=== PATIENT | female | born 1955 | race Caucasian/White ===

== ENCOUNTER 2017-06-18 17:12 | Observation (INO) | payer OTHER ==
[~2017-06-18] VITALS: Ht 172.7 cm; Wt 91.2 kg
[2017-06-18] MEDS ORDERED: ASPIRIN 81 MG CHEW PO STA (17:36)
--- NOTE | 2017-06-18 17:46 | EMERGENCY ROOM VISIT NOTE ---
ED Visit Note First contact with patient: 17:20 CHIEF COMPLAINT: Chest pain HISTORY OF PRESENTING ILLNESS: This is a 62-year-old female who presents to the emergency department with complaint of chest pain that started yesterday. She states that chest pain is in the left side of her chest, started yesterday afternoon, this morning she woke up with pain radiating down her left arm, she states the pain has been constant, the chest pain as a sharp/stabbing pain, and the arm pain is an aching, currently rates as 3/10. She has also felt clammy, although she attributes this to hot flashes. She denies any associated shortness of breath, dizziness, nausea or vomiting. She has not tried any medications for her symptoms. She is not a smoker, she denies a history of hypertension or diabetes, she has no history of coronary artery disease. She does have significant family history with both her mother and her father experiencing MIs, and has a sister who has had a stroke. She denies any headache, vision changes, neck pain, abdominal pain, back pain, diarrhea, bloody or black stools, urinary symptoms, or rash. REVIEW OF SYSTEMS: A complete 10 point review of systems was reviewed with the patient with pertinent positives and negatives as per history of present illness. All else were negative. PAST MEDICAL HISTORY: Hyperlipidemia, anxiety SOCIAL HISTORY: Lives at home with her . Denies tobacco, alcohol, recreational drug use. ALLERGIES: [place] PHYSICAL EXAM: CONSTITUTIONAL: Pleasant and cooperative. No acute distress. Well-hydrated, well appearing and well nourished. HEENT: Normocephalic, atraumatic. Pupils equal, round and reactive to light, EOMI. TMs normal. Pharynx normal. Moist mucous membranes. NECK: Supple, full active range of motion without discomfort. No cervical adenopathy. RESPIRATORY: Clear to auscultation bilaterally with no wheezing, crackles, rhonchi or stridor. Equal expansion bilaterally. CARDIOVASCULAR: Regular rate and rhythm with no murmurs, rubs or gallops. Normal peripheral perfusion with 2+ radial and DP pulses equal bilaterally. No edema. GASTROINTESTINAL: Soft, nontender, nondistended. No palpable masses or HSM. Bowel sounds present in all quadrants. MUSCULOSKELETAL: Full range of motion of all joints without discomfort. No calf swelling or tenderness to palpation. INTEGUMENTARY: No rash or other significant dermatologic conditions noted. NEUROLOGIC: Alert and oriented X 4 with normal affect. Cranial nerves II-XII grossly intact, no facial droop, no pronator drift. No focal neurologic deficits noted. 5/5 strength in all 4 extremities, sensation intact to light touch all 4 extremities. [id number] testing normal. Speech normal. Normal gait observed. ED COURSE AND MEDICAL DECISION MAKING: CC: Patient presenting with complaint of chest pain DIFFERENTIAL DIAGNOSIS: Includes, but not limited to acute coronary syndrome, pulmonary embolism, aortic dissection, pneumothorax, pericarditis, myocarditis, anxiety, musculoskeletal pain, GERD, costochondritis, pneumonia, among others. INTERPRETATION OF LABS: No leukocytosis, no anemia, no significant electrolyte abnormalities, normal renal function, normal liver enzymes and lipase. Troponin negative. Coagulation factors within normal limits. IMAGING: CHEST 2 VIEWS ROUTINE CLINICAL HISTORY: Atypical chest pain COMPARISON STUDY: No previous studies for comparison. FINDINGS: The heart is at the upper limits of normal in size. There is no failure. There is no focal pulmonary consolidation. There are no pleural effusions. IMPRESSION: No active disease in the chest. EKG: Shows normal sinus rhythm with a rate of 72 bpm, nonspecific ST and T-wave abnormality in the inferior and anterior leads by my interpretation. No previous EKG available for comparison. MEDICATION RECONCILIATION: I attest that I have personally reviewed the patient 's current medication list. INITIAL VITAL SIGNS REVIEW: I reviewed the patient's initial vital signs and interpret them as follows: T: Afebrile; BP: Hypertensive; HR: Within normal limits; RR: Within normal limits; Pulse Ox: Within normal limits on room air. Blood pressure screening: The patient was found to have an elevated blood pressure and was referred to the inpatient hospitalist team for further management. SUMMARY: Patient was evaluated at bedside, history and physical exam performed. Patient is alert and oriented, in no acute distress, resting calmly in stretcher. Patient does not have any reproducibility of her chest or arm pain. Patient is noted to be hypertensive, vitals are otherwise unremarkable. Patient neurologic exam is normal with no focal deficits. Patient does have a slight droop to the left side of her mouth which she and her state is normal and does not have any facial muscle weakness with smiling or raising of the eyebrows. EKG reviewed at bedside, normal sinus rhythm with some nonspecific ST and T- wave abnormalities in the inferior and anterior leads. Orders were placed at bedside for labs, aspirin, chest x-ray to evaluate for cardiopulmonary disease. Patient discussed with Dr. Xiong, who agrees with my assessment and plan. Labs and imaging reviewed as above, unremarkable, troponin negative. Patient was discussed with the hospitalist, who agrees to evaluate for admission. Patient reassessed multiple times throughout ED stay, she remains well-appearing , reports her chest pain has improved somewhat. Patient was updated on all results and plan for admission, she verbalized understanding and was in agreement with this plan. Patient was in stable condition at time of admission. Current/Historical Medications Scheduled Atorvastatin (Lipitor), 40 MG PO QPM Calcium Carbonate-Vitamin D W/ (Caltrate 600 Plus), 1 TAB PO DAILY Fluticasone Propionate (Nasal) (Flonase Allergy Relief), 2 SPRAYS JULISSA DAILY Venlafaxine Hcl (Venlafaxine Extended Rel), 75 MG PO DAILY Scheduled PRN Lorazepam (Ativan), 0.5 MG PO BID PRN for Anxiety Meloxicam (Mobic), 7.5 MG PO DAILY PRN for Pain Omeprazole (Prilosec), 40 MG PO DAILY PRN for acid reflux [Proair 108], 2 PUFF INH Q4 PRN for SOB/Wheezing Allergies Coded Allergies: Cefotaxime (Verified Allergy, Mild, 0, 06/18/17) pruritus Vital Signs Date Time Temp Pulse Resp B/P (MAP) Pulse Ox O2 Delivery O2 Flow Rate FiO2 06/18/17 22:03 157/93 06/18/17 21:42 80 16 96 06/18/17 21:31 158/89 06/18/17 21:12 78 14 96 06/18/17 21:01 160/92 06/18/17 20:42 84 16 06/18/17 20:31 171/101 06/18/17 20:27 71 16 135/87 96 Room Air 06/18/17 20:12 72 16 96 06/18/17 20:01 139/88 06/18/17 19:42 74 15 06/18/17 19:32 73 06/18/17 19:31 126/94 06/18/17 18:40 97 Room Air 06/18/17 18:40 69 16 145/89 96 Room Air 06/18/17 17:40 96 Room Air 06/18/17 17:40 96 Room Air 06/18/17 17:14 36.9 82 16 161/96 96 Room Air Laboratory Results 06/18/17 17:48 Red Blood Count 4.31, Mean Corpuscular Volume 86.1, Mean Corpuscular Hemoglobin 29.7, Mean Corpuscular Hemoglobin Concent 34.5, Mean Platelet Volume 10.0, Neutrophils (%) (Auto) 49.9, Lymphocytes (%) (Auto) 39.6, Monocytes (%) (Auto) 8.4, Eosinophils (%) (Auto) 1.7, Basophils (%) (Auto) 0.3, Neutrophils # (Auto) 3.56, Lymphocytes # (Auto) 2.83, Monocytes # (Auto) 0.60, Eosinophils # (Auto) 0.12, Basophils # (Auto) 0.02 06/18/17 17:48 Test 06/18/17 17:48 06/18/17 21:27 White Blood Count 7.14 K/uL (4.8-10.8) Red Blood Count 4.31 M/uL (4.2-5.4) Hemoglobin 12.8 g/dL (12.0-16.0) Hematocrit 37.1 % (37-47) Mean Corpuscular Volume 86.1 fL (80-100) Mean Corpuscular Hemoglobin 29.7 pg (25-34) Mean Corpuscular Hemoglobin Concent 34.5 g/dl (32-36) Platelet Count 214 K/uL (130-400) Mean Platelet Volume 10.0 fL (7.4-10.4) Neutrophils (%) (Auto) 49.9 % Lymphocytes (%) (Auto) 39.6 % Monocytes (%) (Auto) 8.4 % Eosinophils (%) (Auto) 1.7 % Basophils (%) (Auto) 0.3 % Neutrophils # (Auto) 3.56 K/uL (1.4-6.5) Lymphocytes # (Auto) 2.83 K/uL (1.2-3.4) Monocytes # (Auto) 0.60 K/uL (0.11-0.59) Eosinophils # (Auto) 0.12 K/uL (0-0.5) Basophils # (Auto) 0.02 K/uL (0-0.2) RDW Standard Deviation 42.3 fL (36.4-46.3) RDW Coefficient of Variation 13.3 % (11.5-14.5) Immature Granulocyte % (Auto) 0.1 % Immature Granulocyte # (Auto) 0.01 K/uL (0.00-0.02) Prothrombin Time 9.9 SECONDS (9.0-12.0) Prothromb Time International Ratio 0.9 (0.9-1.1) Activated Partial Thromboplast Time 24.3 SECONDS (21.0-31.0) Partial Thromboplastin Ratio 0.9 Anion Gap 8.0 mmol/L (3-11) Est Creatinine Clear Calc Drug Dose 83.7 ml/min Estimated GFR () 91.7 Estimated GFR (Non- 79.1 BUN/Creatinine Ratio 21.1 (10-20) Calcium Level 8.5 mg/dl (8.5-10.1) Magnesium Level 2.2 mg/dl (1.8-2.4) Total Bilirubin 0.4 mg/dl (0.2-1) Direct Bilirubin < 0.1 mg/dl (0-0.2) Aspartate Amino Transf (AST/SGOT) 11 U/L (15-37) Alanine Aminotransferase (ALT/SGPT) 24 U/L (12-78) Alkaline Phosphatase 73 U/L (45-117) Pro-B-Type Natriuretic Peptide 28 pg/ml (0-900) Total Protein 7.4 gm/dl (6.4-8.2) Albumin 3.9 gm/dl (3.4-5.0) Lipase 378 U/L (73-393) Troponin I < 0.015 ng/ml (0-0.045) Medications Administered Medications (Trade) Dose Ordered Sig/Tal Route Start Time Stop Time Status Last Admin Dose Admin Aspirin (Aspirin Chew) 324 mg NOW STAT PO 06/18/17 17:36 06/18/17 17:39 DC 06/18/17 17:55 324 MG Departure Information Impression Primary Impression: Chest pain Dispostion Admitted as an inpatient Condition FAIR Referrals No Doctor, Assigned (PCP) Patient Instructions My [facility] Problem Qualifiers Primary Impression: Chest pain Chest pain type: unspecified Qualified Codes: R07.9 - Chest pain, unspecified
[2017-06-18 18:04] LABS: BASO % 0.3 %; BASO ABS # 0.02 K/uL (0-0.2); EOS % 1.7 %; EOS ABS # 0.12 K/uL (0-0.5); HEMATOCRIT 37.1 % (37-47); HEMOGLOBIN 12.8 g/dL (12.0-16.0); IG# 0.01 K/uL (0.00-0.02); LYMPH % 39.6 %; LYMPH ABS # 2.83 K/uL (1.2-3.4); MEAN CELL VOLUME 86.1 fL (80-100); MEAN CORPUSCULAR HEMOGLOBIN 29.7 pg (25-34); MEAN CORPUSCULAR HGB CONC 34.5 g/dl (32-36); MONO % 8.4 %; NEUT % 49.9 %; NEUT ABS # 3.56 K/uL (1.4-6.5); PLATELET COUNT 214 K/uL (130-400); RED CELL DISTRIBUTION WIDTH CV 13.3 % (11.5-14.5); RED CELL DISTRIBUTION WIDTH SD 42.3 fL (36.4-46.3); WHITE BLOOD COUNT 7.14 K/uL (4.8-10.8)
[2017-06-18 18:13] LABS: INR 0.9 (0.9-1.1); PTT PATIENT 24.3 SECONDS (21.0-31.0)
--- NOTE | 2017-06-18 18:24 | DIAGNOSTIC IMAGING REPORT ---
CHEST 2 VIEWS ROUTINE CLINICAL HISTORY: Atypical chest pain COMPARISON STUDY: No previous studies for comparison. FINDINGS: The heart is at the upper limits of normal in size. There is no failure. There is no focal pulmonary consolidation. There are no pleural effusions.[ IMPRESSION: No active disease in the chest. Electronically signed by: Jasper Corona M.D. 06/18/2017 6:23 PM Dictated Date/Time: 06/18/2017 6:23 PM
[2017-06-18 18:25] LABS: ALBUMIN 3.9 gm/dl (3.4-5.0); ALT/SGPT 24 U/L (12-78); AST/SGOT 11 U/L (15-37); BLOOD UREA NITROGEN 17 mg/dl (7-18); CALCIUM 8.5 mg/dl (8.5-10.1); CARBON DIOXIDE 25 mmol/L (21-32); CREATININE 0.79 mg/dl (0.60-1.20); GLUCOSE 80 mg/dl (70-99); LIPASE 378 U/L (73-393); POTASSIUM 3.9 mmol/L (3.5-5.1); SODIUM 139 mmol/L (136-145)
[2017-06-18 18:33] LABS: ALKALINE PHOSPHATASE 73 U/L (45-117); TOTAL PROTEIN 7.4 gm/dl (6.4-8.2)
[2017-06-18] MEDS ORDERED: MELO7.5T5 PO (19:43)
[2017-06-18] MEDS ORDERED: OMEP40CA41 PO (19:43)
[2017-06-18] MEDS ORDERED: CALCTAB7 PO (19:43)
[2017-06-18] MEDS ORDERED: FLUT0.15 NAE (19:43)
[2017-06-18] MEDS ORDERED: LORA-741 PO (19:43)
[2017-06-18] MEDS ORDERED: ATOR-24 PO (19:43)
[2017-06-18] MEDS ORDERED: PROAIR 108 INH (19:43)
[2017-06-18] MEDS ORDERED: VENL75CA73 PO (19:43)
[2017-06-18] MEDS ORDERED: IV FLUIDS COMPLETED PRN (21:00)
[2017-06-18] MEDS ORDERED: ATORVASTATIN 40 MG TAB PO SCH (21:00)
[2017-06-18] MEDS ORDERED: MoRPHine SULFATE 4 MG/ML 1 ML CARP\\VIAL IV PRN (21:00)
[2017-06-18] MEDS ORDERED: NITROGLYCERIN 0.4 MG SL PER TAB CHARGE SL PRN (21:00)
[2017-06-18] MEDS ORDERED: LORAZEPAM 0.5 MG TAB PO PRN (21:00)
[2017-06-18] MEDS ORDERED: LORAZEPAM 2 MG/ML 1 ML VIAL IV PRN (21:00)
[2017-06-18] MEDS ORDERED: ACETAMINOPHEN 325 MG TAB PO PRN (21:00)
[2017-06-18] MEDS ORDERED: PROCHLORPERAZINE INJ 5 MG in SYRINGE 4 ML IV PRN (21:00)
[2017-06-18] MEDS ORDERED: TRAMADOL HCL 50 MG TAB PO PRN (21:00)
[2017-06-18] MEDS ORDERED: PANTOprazole SOD 40 MG TAB PO PRN (21:00)
[2017-06-18] MEDS ORDERED: LORAZEPAM INJ 0.5 MG in SYRINGE 0.75 ML IV PRN (21:30)
[2017-06-18 23:17] VITALS: BP 157/93; PULSE 67; TEMP 36.8; O2SAT 96; Ht 172.7 cm; Wt 91.2 kg
[2017-06-18] MEDS ORDERED: NSS + 20MEQ KCL 1000ML 1,000 ML IV SCH (23:30)
[2017-06-19 04:00] VITALS: BP 138/80; PULSE 66; TEMP 36.7; O2SAT 97
[2017-06-19 04:01] LABS: BASO % 0.3 %; BASO ABS # 0.02 K/uL (0-0.2); EOS ABS # 0.13 K/uL (0-0.5); HEMATOCRIT 36.5 % (37-47); HEMOGLOBIN 12.6 g/dL (12.0-16.0); LYMPH % 45.3 %; LYMPH ABS # 2.94 K/uL (1.2-3.4); MEAN CELL VOLUME 85.9 fL (80-100); MEAN CORPUSCULAR HEMOGLOBIN 29.6 pg (25-34); MEAN CORPUSCULAR HGB CONC 34.5 g/dl (32-36); MEAN PLATELET VOLUME 9.9 fL (7.4-10.4); MONO ABS # 0.65 K/uL (0.11-0.59); NEUT % 42.4 %; NEUT ABS # 2.75 K/uL (1.4-6.5); PLATELET COUNT 202 K/uL (130-400); RED CELL DISTRIBUTION WIDTH CV 13.3 % (11.5-14.5); RED CELL DISTRIBUTION WIDTH SD 41.7 fL (36.4-46.3); WHITE BLOOD COUNT 6.49 K/uL (4.8-10.8)
[2017-06-19 04:11] LABS: PTT PATIENT 23.6 SECONDS (21.0-31.0)
--- NOTE | 2017-06-19 05:51 | HISTORY & PHYSICAL EXAMINATION ---
DATE OF ADMISSION: 06/18/2017 PATIENT'S PRIMARY CARE DOCTOR: Dr. Alvarado CHIEF COMPLAINT: Chest pain. HISTORY OF PRESENT ILLNESS: History obtained from the patient and records. Medical history significant for hyperlipidemia, anxiety/depression. Today, the patient had chest pain on the left side going down her left arm, more constant. No shortness of breath, no unusual exertion. Currently, comfortable in the Emergency Room. MEDICAL HISTORY: As above. SURGERIES: She has had a tendon muscle repair, bilateral tubal ligation, section. HOME MEDICATIONS: Include Meloxicam, atorvastatin, Effexor, lorazepam, calcium carbonate, and fluticasone. ALLERGIES: CEFOTAXIME. FAMILY HISTORY: There is a family history of heart disease, diabetes. PERSONAL AND SOCIAL HISTORY: Nonsmoker, no chronic intake of alcoholic beverages. She works as a service station attendant. REVIEW OF SYSTEMS: As per HPI, all 10 systems reviewed, all other ROS negative. PHYSICAL EXAMINATION: VITAL SIGNS: Blood pressure was noted to be 157/93, pulse rate 67, respiratory rate 14, temperature 36.8, sats 96% on room air. GENERAL: Noted to be anxious, obese, no respiratory distress. Looks younger for stated age. SKIN: Normal color, warm. HEENT: [place] palpebral conjunctivae. No ptosis. Dry mucosa. NECK: Short, supple. CHEST: Decreased breath sounds. No tenderness. HEART: RRR, no murmur. ABDOMEN: Soft, nontender. EXTREMITIES: No edema, no tenderness. No gross deformities. NEUROLOGIC: Coherent, No gross focality. LABORATORY DATA: Hemoglobin was noted to be 12.8, WBC 8 platelets 214. Sodium 136, potassium 3.9, chloride 106, CO2 of 25, BUN 17, creatinine 0.79, glucose was noted to be 80. Lipid profile in February 2017 - cholesterol 286, triglyceride 175, HDL 66, LDL 185. IMAGING DATA: Chest x-ray showed no active disease. EKG as per my interpretation - 70, normal sinus rhythm, some T-wave flattening in the inferior and septal leads. ASSESSMENT: 1. Chest pain Possibly from anxiety rule out acute coronary syndrome. 2. Hyperlipidemia as per records. 3. Situational hypertension. 4. Mood disorder stable on meds PLAN: Observation PCU ASA for now for CAD prevention until ACS ruled out. Follow cardiac markers. Exercise stress echo if AM troponin negative. Anxiolytic when necessary DVT prophylaxis. Lovenox subQ. Full code. MTDD
[2017-06-19] MEDS ORDERED: ENOXAPARIN 40 MG/0.4 ML SYR SC SCH (06:00)
[2017-06-19 08:00] VITALS: BP 145/88; PULSE 63; TEMP 36.9; O2SAT 95; O2SAT 97
[2017-06-19] MEDS ORDERED: FLUTICASONE PROPIONATE NA SPR 16 GM BTL NAE SCH (09:00)
[2017-06-19] MEDS ORDERED: ASPIRIN 81 MG ECTAB PO SCH (09:00)
[2017-06-19] MEDS ORDERED: VENLAFAXINE HCL XR 75 MG CAPXR PO SCH (09:00)
[2017-06-19 12:00] VITALS: O2SAT 97
--- NOTE | 2017-06-19 13:13 | EXERCISE STRESS ECHO ---
*NOTICE TO RECEIVING LIBERTARIAN AGENCY This information is strictly Confidential and protected under [place] law. [place] law prohibits you from making any further disclosure of this information unless further disclosure is expressly permitted by the written consent of the person to whom it pertains or is authorized by law. A general authorization for the release of medical or other information is not sufficient for this purpose. Hospital accepts no responsibility if the information is made available to any other person, INCLUDING THE PATIENT. Interpretation Summary * Name: SHARATH ROBLEDO Study Date: 06/19/2017 07:59 AM BP: 118/79 mmHg * Patient Location: C.EDINP\S\EDINP 1\S\3 HR: 63 * : 1955 (M/d/yyyy) Gender: Female Height: 68 in * Age: 62 yrs Ethnicity: [place] Weight: 201 lb * Ordering Physician: Al Nguyen * Referring Physician: Self, Referred * Performed By: Patti Harrison RCS * * Reason For Study: CHEST PAIN * BSA: 2.0 m2 * -- Conclusions -- * Nonischemic exercise stress echocardiogram. * No arrhythmias. * Normal HR and BP response to exercise. * Average exercise tolerance. * At rest, normal LV chamber size with mild concentric LVH. * Normal LV systolic function, EF 55-60%. * No segmental left ventricular wall motion abnormalities are noted. * Grade I diastolic dysfunction. * Aortic valve sclerosis mild, without significant aortic valvular stenosis. Procedure Details * ECHOEX, CPT #[id number] * ECHO COLOR FLOW, CPT #[id number] * ECHO DOPPLER, CPT #[id number] Left Ventricle * The left ventricle is normal in size. * There is mild concentric left ventricular hypertrophy. * Left ventricular systolic function is normal. * No segmental left ventricular wall motion abnormalities are noted. * Ejection Fraction = 55-60%. * Resting wall motion: Normal. Stress wall motion: Appropriate increase in Left ventricular systolic function and decrease in cavity size. No stress induced segmental wall motion abnormalities. Right Ventricle * The right ventricular cavity size is normal (basal dimension <4.2 cm in right ventricular apical 4-chamber view). * The right ventricular systolic function is normal as assessed by tricuspid annular plane systolic excursion (TAPSE) (normal >1.5 cm). Atria * The left atrial size is normal. * Right atrial size is normal. * No ASD detected; PFO is not assessed. Mitral Valve * The mitral valve is normal in structure and function. Tricuspid Valve * The tricuspid valve is normal in structure and function. Aortic Valve * The aortic valve is trileaflet. * Aortic valve sclerosis mild, without significant aortic valvular stenosis. * There is no significant aortic regurgitation. Pulmonic Valve * The pulmonary valve is not well seen, but the Doppler examination is normal without significant regurgitation or stenosis. Great Vessels * The aortic root is normal size. Pericardium * There is no pericardial effusion. Stress Parameters * Normal baseline electrocardiogram. * Stress ECG: No ST changes. No arrhythmias. * No arrhythmia were noted with stress. * The stress portion of this study was personally supervised by the undersigned interpreting physician. * Rest heart rate was '63' BPM. * Rest blood pressure was '118/79' * Maximum heart rate achieved was 150 bpm. * Maximum heart rate was 96 % of maximum age-predicted heart rate. * Maximum blood pressure was '174/72' * Total exercise time was '09:21' * Maximum exercise MET level achieved was '10.60' METS * Maximum treadmill speed was '4.20' miles per hour. * Maximum treadmill elevation was '16.00'% grade. Left Ventricular Diastolic Function * Grade I diastolic dysfunction, (abnormal relaxation pattern). MMode 2D Measurements and Calculations IVSd 1.1 cm IVSs 1.5 cm LVIDd 4.6 cm LVIDs 3.1 cm LVPWd 1.0 cm LVPWs 1.3 cm IVS/LVPW 1.1 FS 32.5 % EDV(Teich) 97.1 ml ESV(Teich) 38.0 ml EF(Teich) 60.9 % EDV(cubed) 97.0 ml ESV(cubed) 29.8 ml EF(cubed) 69.3 % % IVS thick 38.3 % % LVPW thick 30.8 % LV mass(C)d 169.4 grams LV mass(C)dI 82.7 grams/m\S\2 LV mass(C)s 149.1 grams LV mass(C)sI 72.8 grams/m\S\2 SV(Teich) 59.1 ml SI(Teich) 28.9 ml/m\S\2 SV(cubed) 67.2 ml SI(cubed) 32.8 ml/m\S\2 Ao root diam 2.8 cm Ao root area 6.3 cm\S\2 LA dimension 3.5 cm LA/Ao 1.2 LVOT diam 2.0 cm LVOT area 3.3 cm\S\2 Doppler Measurements and Calculations MV E max alvin 57.8 cm/sec MV A max alvin 63.8 cm/sec MV E/A 0.91 MV P1/2t max alvin 65.6 cm/sec MV P1/2t 94.1 msec MVA(P1/2t) 2.3 cm\S\2 MV dec slope 204.2 cm/sec\S\2 MV dec time 0.36 sec Ao V2 max 126.2 cm/sec Ao max PG 6.4 mmHg Ao max PG (full) 0.13 mmHg VINICIUS(V,A) 3.2 cm\S\2 VINICIUS(V,D) 3.2 cm\S\2 LV V1 max PG 6.2 mmHg LV V1 max 124.9 cm/sec PA V2 max 87.1 cm/sec PA max PG 3.0 mmHg PI max alvin 136.3 cm/sec PI max PG 7.4 mmHg PI dec slope 115.4 cm/sec\S\2 PI P1/2t 346.1 msec TR max alvin 170.8 cm/sec
--- NOTE | 2017-06-19 13:26 | Progress Note ---
Medicine Progress Note Date & Time of Visit: Jun 19, 2017 at 13:07. Subjective Pt was seen and examined Sitting in bed with no distress Pt said that she feels fine now She said that she has been having intermittent chest pain for about 5 months She said that the pain sometimes located at different area in her chest( such as left or right side of the chest and even in the lateral side of her chest) She had a dobutamine stress test done today that was negative for ischemia Pt said that she used to be on GERD medication but has not been on it for months to year. Pt said that she likes spicy food Denies any chest pain, palpitation, dizziness and SOB Objective Last 8 Hrs Date Time Temp Pulse Resp B/P (MAP) Pulse Ox O2 Delivery O2 Flow Rate FiO2 06/19/17 08:00 97 Room Air 06/19/17 08:00 36.9 63 20 145/88 (107) 95 Room Air 06/19/17 06:31 65 Physical Exam: General- No acute distress Head- atraumatic Eyes- PERRL, EOMI ENT- oropharynx clear Neck- supple, no JVD Lungs- clear to auscultation Heart- regular rhythm; Abdomen- normal bowel sounds, soft Extremities-no calf tenderness Neuro- alert, oriented x 3; PERRL, EOMI Skin- warm & dry Laboratory Results: Last 24 Hours Test 06/18/17 17:48 06/18/17 21:27 06/18/17 23:49 06/19/17 03:54 White Blood Count 7.14 K/uL 6.49 K/uL Red Blood Count 4.31 M/uL 4.25 M/uL Hemoglobin 12.8 g/dL 12.6 g/dL Hematocrit 37.1 % 36.5 % Mean Corpuscular Volume 86.1 fL 85.9 fL Mean Corpuscular Hemoglobin 29.7 pg 29.6 pg Mean Corpuscular Hemoglobin Concent 34.5 g/dl 34.5 g/dl Platelet Count 214 K/uL 202 K/uL Mean Platelet Volume 10.0 fL 9.9 fL Neutrophils (%) (Auto) 49.9 % 42.4 % Lymphocytes (%) (Auto) 39.6 % 45.3 % Monocytes (%) (Auto) 8.4 % 10.0 % Eosinophils (%) (Auto) 1.7 % 2.0 % Basophils (%) (Auto) 0.3 % 0.3 % Neutrophils # (Auto) 3.56 K/uL 2.75 K/uL Lymphocytes # (Auto) 2.83 K/uL 2.94 K/uL Monocytes # (Auto) 0.60 K/uL 0.65 K/uL Eosinophils # (Auto) 0.12 K/uL 0.13 K/uL Basophils # (Auto) 0.02 K/uL 0.02 K/uL RDW Standard Deviation 42.3 fL 41.7 fL RDW Coefficient of Variation 13.3 % 13.3 % Immature Granulocyte % (Auto) 0.1 % 0.0 % Immature Granulocyte # (Auto) 0.01 K/uL 0.00 K/uL Prothrombin Time 9.9 SECONDS Prothromb Time International Ratio 0.9 Activated Partial Thromboplast Time 24.3 SECONDS 23.6 SECONDS Partial Thromboplastin Ratio 0.9 0.9 Sodium Level 139 mmol/L Potassium Level 3.9 mmol/L Chloride Level 106 mmol/L Carbon Dioxide Level 25 mmol/L Anion Gap 8.0 mmol/L Blood Urea Nitrogen 17 mg/dl Creatinine 0.79 mg/dl Est Creatinine Clear Calc Drug Dose 83.7 ml/min Estimated GFR () 91.7 Estimated GFR (Non- 79.1 BUN/Creatinine Ratio 21.1 Random Glucose 80 mg/dl Calcium Level 8.5 mg/dl Magnesium Level 2.2 mg/dl Total Bilirubin 0.4 mg/dl Direct Bilirubin < 0.1 mg/dl Aspartate Amino Transf (AST/SGOT) 11 U/L Alanine Aminotransferase (ALT/SGPT) 24 U/L Alkaline Phosphatase 73 U/L Troponin I < 0.015 ng/ml < 0.015 ng/ml < 0.015 ng/ml Pro-B-Type Natriuretic Peptide 28 pg/ml Total Protein 7.4 gm/dl Albumin 3.9 gm/dl Lipase 378 U/L Assessment & Plan Atypical Chest pain Possibly related to GERD vs anxiety Troponinx3 negative EKG showed no ischemic changes Cardiology on board Stress Echo test negative for ischemia Ok from cardiac standpoint to discharge Continue Aspirin and Statin Resolved Hyperlipidemia On Statin Elevated BP Possible related to hospital setting Continue monitor BP DVT prophylaxis On Lovenox subQ. Full code. Disposition Will discharge home today Current Inpatient Medications: Current Inpatient Medications Medications (Trade) Dose Ordered Sig/Tal Route Start Time Stop Time Status Last Admin Dose Admin Miscellaneous (Iv Fluids Completed) 1 ea PRN PRN N/A 06/18/17 21:00 06/18/18 20:59 Enoxaparin Sodium (Lovenox Inj) 40 mg Q24H SC 06/19/17 06:00 07/19/17 05:59 06/19/17 05:45 40 MG Potassium Chloride/Sodium Chloride 1,000 ml @ 50 mls/hr Q20H IV 06/18/17 23:30 07/18/17 23:29 06/19/17 00:59 50 MLS/HR Acetaminophen (Tylenol Tab) 650 mg Q4H PRN PO 06/18/17 21:00 07/18/17 20:59 Nitroglycerin (Nitrostat Tab) 0.4 mg UD PRN SL 06/18/17 21:00 07/18/17 20:59 Aspirin (Ecotrin Tab) 81 mg QAM PO 06/19/17 09:00 07/19/17 08:59 Atorvastatin Calcium (Lipitor Tab) 40 mg QPM PO 06/18/17 21:00 07/18/17 20:59 06/19/17 00:58 40 MG Fluticasone Propionate (Flonase Nasal [place]) 2 sprays DAILY JULISSA 06/19/17 09:00 07/19/17 08:59 Lorazepam (Ativan Tab) 0.5 mg BID PRN PO 06/18/17 21:00 07/18/17 20:59 Venlafaxine HCl (effeXOR EXTENDED REL CAP) 75 mg DAILY PO 06/19/17 09:00 07/19/17 08:59 Pantoprazole Sodium (Protonix Tab) 40 mg DAILY PRN PO 06/18/17 21:00 07/18/17 20:59 Morphine Sulfate (MoRPHine SULFATE INJ) 4 mg Q3H PRN IV 06/18/17 21:00 07/02/17 20:59 Prochlorperazine Edisylate 5 mg/ Syringe 5 ml @ 5 mls/min Q6H PRN IV 06/18/17 21:00 07/18/17 20:59 Tramadol HCl (Ultram Tab) 25 mg Q6H PRN PO 06/18/17 21:00 07/18/17 20:59 Lorazepam (Ativan Inj) 0.5 mg Q4H PRN IV 06/18/17 21:00 07/18/17 20:59 Lorazepam 0.5 mg/ Syringe 1 ml @ 1 mls/min Q4H PRN IV 06/18/17 21:30 07/18/17 21:29
[2017-06-19] MEDS ORDERED: ASPEC81 PO (13:33)
[2017-06-19 13:36] VITALS: BP 145/88; PULSE 63; TEMP 36.9; O2SAT 95
--- NOTE | 2017-06-19 13:39 | Discharge Instructions ---
Discharge Instructions Date of Service Jun 19, 2017. Admission Reason for Admission: Chest Pain Discharge Discharge Diagnosis / Problem: Atypical Chest Pain Discharge Goals Goal(s): Decrease discomfort, Improve function, Improve disease control Activity Recommendations Activity Limitations: resume your previous activity (as tolerated) . Instructions / Follow-Up Instructions / Follow-Up Follow up with your primary care provider Dr. Regalado on 06/23 @ 11:05 AM Please avoid spicy food, chocolate, lemon and citrus ingredients Seek medical attention if chest pain reoccurs and continues Current Hospital Diet Patient's current hospital diet: AHA Diet (Heart Healthy) Discharge Diet Recommended Diet: AHA Diet (Heart Healthy) Pending Studies Studies pending at discharge: no Medical Emergencies . Who to Call and When: Medical Emergencies: If at any time you feel your situation is an emergency, please call 911 immediately. . Non-Emergent Contact Non-Emergency issues call your: Primary Care Provider Call Non-Emergent contact if: you have any medication questions . . "Provider Documentation" section prepared by Sosa Estrada. .
[2017-06-19 13:58] VITALS: BP 125/93; PULSE 68; TEMP 36.9; O2SAT 98
--- NOTE | 2017-06-22 18:23 | Discharge Summary ---
Discharge Summary Date of Service Jun 22, 2017. Discharge Summary Admission Date: Jun 18, 2017 at 22:15 Discharge Date: Jun 19, 2017 Discharge Disposition: Home Principal Diagnosis: Atypical Chest pain Secondary Diagnoses/Problems: Dyslipidemia Elevated BP Procedures: Interpretation Summary * Name: SHARATH ROBLEDO Study Date: 06/19/2017 07:59 AM BP: 118/79 mmHg * [facility] HR: 63 * : 1955 (M/d/yyyy) Gender: Female Height: 68 in * Age: 62 yrs Ethnicity: [place] Weight: 201 lb * Ordering Physician: Al Nguyen * Referring Physician: Self, Referred * Performed By: Patti Harrison RCS * * Reason For Study: CHEST PAIN * BSA: 2.0 m2 * -- Conclusions -- * Nonischemic exercise stress echocardiogram. * No arrhythmias. * Normal HR and BP response to exercise. * Average exercise tolerance. * At rest, normal LV chamber size with mild concentric LVH. * Normal LV systolic function, EF 55-60%. * No segmental left ventricular wall motion abnormalities are noted. * Grade I diastolic dysfunction. * Aortic valve sclerosis mild, without significant aortic valvular stenosis. Procedure Details * ECHOEX, CPT #[id number] * ECHO COLOR FLOW, CPT #[id number] * ECHO DOPPLER, CPT #[id number] Left Ventricle * The left ventricle is normal in size. * There is mild concentric left ventricular hypertrophy. * Left ventricular systolic function is normal. * No segmental left ventricular wall motion abnormalities are noted. * Ejection Fraction = 55-60%. * Resting wall motion: Normal. Stress wall motion: Appropriate increase in Left ventricular systolic function and decrease in cavity size. No stress induced segmental wall motion abnormalities. Right Ventricle * The right ventricular cavity size is normal (basal dimension <4.2 cm in right ventricular apical 4-chamber view). * The right ventricular systolic function is normal as assessed by tricuspid annular plane systolic excursion (TAPSE) (normal >1.5 cm). Atria * The left atrial size is normal. * Right atrial size is normal. * No ASD detected; PFO is not assessed. Mitral Valve * The mitral valve is normal in structure and function. Tricuspid Valve * The tricuspid valve is normal in structure and function. Aortic Valve * The aortic valve is trileaflet. * Aortic valve sclerosis mild, without significant aortic valvular stenosis. * There is no significant aortic regurgitation. Pulmonic Valve * The pulmonary valve is not well seen, but the Doppler examination is normal without significant regurgitation or stenosis. Great Vessels * The aortic root is normal size. Pericardium * There is no pericardial effusion. Stress Parameters * Normal baseline electrocardiogram. * Stress ECG: No ST changes. No arrhythmias. * No arrhythmia were noted with stress. * The stress portion of this study was personally supervised by the undersigned interpreting physician. * Rest heart rate was '63' BPM. * Rest blood pressure was '118/79' * Maximum heart rate achieved was 150 bpm. * Maximum heart rate was 96 % of maximum age-predicted heart rate. * Maximum blood pressure was '174/72' * Total exercise time was '09:21' * Maximum exercise MET level achieved was '10.60' METS * Maximum treadmill speed was '4.20' miles per hour. * Maximum treadmill elevation was '16.00'% grade. Left Ventricular Diastolic Function * Grade I diastolic dysfunction, (abnormal relaxation pattern). CHEST 2 VIEWS ROUTINE CLINICAL HISTORY: Atypical chest pain COMPARISON STUDY: No previous studies for comparison. FINDINGS: The heart is at the upper limits of normal in size. There is no failure. There is no focal pulmonary consolidation. There are no pleural effusions.[ IMPRESSION: No active disease in the chest. Electronically signed by: Jasper Corona M.D. 06/18/2017 6:23 PM Dictated Date/Time: 06/18/2017 6:23 PM Medication Reconciliation New Medications: Aspirin (Aspirin EC Low Dose) 81 Mg Ectab 81 MG PO QAM for 30 Days Continued Medications: Atorvastatin (Lipitor) 40 Mg Tab 40 MG PO QPM, TAB Calcium Carbonate-Vitamin D W/ (Caltrate 600 Plus) 1 Tab Tab 1 TAB PO DAILY, TAB Fluticasone Propionate (Nasal) (Flonase Allergy Relief) 50 Mcg/Act Spr 2 SPRAYS JULISSA DAILY SEASONAL ALLERGIES Lorazepam (Ativan) 0.5 Mg Tab 0.5 MG PO BID PRN for Anxiety, TAB Meloxicam (Mobic) 7.5 Mg Tab 7.5 MG PO DAILY PRN for Pain, TAB Omeprazole (Prilosec) 40 Mg Cap 40 MG PO DAILY PRN for acid reflux, CAP Venlafaxine Hcl (Venlafaxine Extended Rel) 75 Mg Cap 75 MG PO DAILY, CAP [Proair 108] () 2 PUFF INH Q4 PRN for SOB/Wheezing Admission Information HPI (per Admitting provider): CHIEF COMPLAINT: Chest pain. HISTORY OF PRESENT ILLNESS: History obtained from the patient and records. Medical history significant for hyperlipidemia, anxiety/depression. Today, the patient had chest pain on the left side going down her left arm, more constant. No shortness of breath, no unusual exertion. Currently, comfortable in the Emergency Room. Physical Exam (per Admitting): VITAL SIGNS: Blood pressure was noted to be 157/93, pulse rate 67, respiratory rate 14, temperature 36.8, sats 96% on room air. GENERAL: Noted to be anxious, obese, no respiratory distress. Looks younger for stated age. SKIN: Normal color, warm. HEENT: [place] palpebral conjunctivae. No ptosis. Dry mucosa. NECK: Short, supple. CHEST: Decreased breath sounds. No tenderness. HEART: RRR, no murmur. ABDOMEN: Soft, nontender. EXTREMITIES: No edema, no tenderness. No gross deformities. NEUROLOGIC: Coherent, No gross focality. Hospital Course Atypical Chest pain Possibly related to GERD vs anxiety Troponinx3 negative EKG showed no ischemic changes Cardiology on board Stress Echo test negative for ischemia Ok from cardiac standpoint to discharge Continue Aspirin and Statin Resolved Hyperlipidemia On Statin Elevated BP Possible related to hospital setting Continue monitor BP DVT prophylaxis On Lovenox subQ. Full code. Disposition Will discharge home today Total time spent on discharge = 35 minutes This includes examination of the patient, discharge planning, medication reconciliation, and communication with other providers. Discharge Instructions Discharge Instructions Date of Service Jun 19, 2017. Admission Reason for Admission: Chest Pain Discharge Discharge Diagnosis / Problem: Atypical Chest Pain Discharge Goals Goal(s): Decrease discomfort, Improve function, Improve disease control Activity Recommendations Activity Limitations: resume your previous activity (as tolerated) . Instructions / Follow-Up Instructions / Follow-Up Follow up with your primary care provider Dr. Regalado on 06/23 @ 11:05 AM Please avoid spicy food, chocolate, lemon and citrus ingredients Seek medical attention if chest pain reoccurs and continues Current Hospital Diet Patient's current hospital diet: AHA Diet (Heart Healthy) Discharge Diet Recommended Diet: AHA Diet (Heart Healthy) Pending Studies Studies pending at discharge: no Medical Emergencies . Who to Call and When: Medical Emergencies: If at any time you feel your situation is an emergency, please call 911 immediately. . Non-Emergent Contact Non-Emergency issues call your: Primary Care Provider Call Non-Emergent contact if: you have any medication questions . . "Provider Documentation" section prepared by Sosa Estrada. . Additional Copies To Babatunde Regalado MD
== END 2017-06-19 14:05 | disposition home or self-care (01) ==
LOC: C.EDB 17:12 → C.EDINP 22:15
PROVIDERS: ADMIT Internal Medicine; ATTEND Internal Medicine
DX: R07.89 Other chest pain (principal); E78.5 Hyperlipidemia, unspecified; I10 Essential (primary) hypertension; F41.9 Anxiety disorder, unspecified; F39 Unspecified mood [affective] disorder; Z88.1 Allergy status to other antibiotic agents